=== PATIENT | female | born 1970 | race Caucasian/White ===

== ENCOUNTER → 2016-10-12 | Outpatient (CLI) | payer BC ==
[~2016-10-12] MED LIST: LEVO125T72 PO
[2016-10-12 17:02] LABS: BLOOD UREA NITROGEN 13 mg/dl (7-18); BUN/CREATININE RATIO 16.4 (10-20); CREATININE 0.78 mg/dl (0.60-1.20)
== END | disposition home or self-care (01) ==
LOC: C.LAB1850 15:58
PROVIDERS: ATTEND Urology
DX: N20.1 Calculus of ureter (principal)

== ENCOUNTER → 2016-10-19 | Outpatient (CLI) | payer BC ==
[~2016-10-19] MED LIST changes: +OPTIRAY 300 IV PRN
--- NOTE | 2016-10-19 14:30 | DIAGNOSTIC IMAGING REPORT ---
IV PYELOGRAM CLINICAL HISTORY: Nephrolithiasis. Ureterocele. COMPARISON STUDY: Abdominal CT dated 07/25/2016. TECHNIQUE: An abdominal cavalry scout radiograph is performed. IVP pyelogram was then performed following the IV administration of 100 cc of Optiray 300, tomographic images are acquired in the corticomedullary and excretory phases of enhancement. Overhead views of the renal collecting system and bladder were obtained in multiple obliquities both pre and post void. FINDINGS: An abdominal cavalry scout radiograph shows a nonobstructed abdominal bowel gas pattern. There is moderate colonic fecal retention. There is no radiographic evidence of nephrolithiasis. A calcified phlebolith is observed in the right hemipelvis. The bony structures appear intact. Following contrast administration the kidneys enhance symmetrically and are without hydronephrosis. There may be slightly degraded bleed excretion from the right kidney as compared to left. On one image only, there is outpouching of contrast suggested the right vesicoureteral junction which may correspond to the reported history of a suspected ureterocele. There are no filling defects identified within the renal pelvis bilaterally or along the course of the ureters. The bladder is normal as visualized. No significant post void residual is seen. IMPRESSION: 1. There is no radiographic evidence of nephrolithiasis. 2. The kidneys enhance symmetrically and are without hydronephrosis. 3. Question slightly delayed excretion from the right kidney as compared to the left. 4. There is focal outpouching of contrast seen on one image only at the right vesicoureteral junction. This may represent a ureterocele as clinically stated. 5. The bladder was normal as visualized. Electronically signed by: Jimbo Alberts M.D. 10/19/2016 2:29 PM Dictated Date/Time: 10/19/2016 2:24 PM
== END | disposition home or self-care (01) ==
LOC: C.RAD 13:00
PROVIDERS: ATTEND Urology
DX: N20.1 Calculus of ureter (principal); N28.89 Other specified disorders of kidney and ureter

== ENCOUNTER → 2016-11-07 | Outpatient (CLI) | payer BC ==
[~2016-11-07] MED LIST changes: -OPTIRAY 300 IV PRN
== END | disposition home or self-care (01) ==
LOC: C.LABSPEC 10:17
PROVIDERS: ATTEND Nurse Practitioner Adult Health
DX: N20.0 Calculus of kidney (principal)